=== PATIENT | female | born 1945 | race Caucasian/White ===

== ENCOUNTER 2017-04-24 07:57 | Inpatient (IN) ==
[2017-04-16 18:14] LABS: Basophils # (Auto) 0.1 K/mcL (0.0-0.3); Basophils % (Auto) 0.7 % (0.0-2.0); Eosinophils # (Auto) 0.3 K/mcL (0.0-0.7); Eosinophils % (Auto) 4.2 % (0.0-7.0); Granulocytes % (Auto) 65.6 % (38.0-78.0); Lymphocytes # (Auto) 1.7 K/mcL (1.5-4.8); Mean Cell Volume 86.3 fL (80.0-100.0); Mean Corpuscular HGB Conc 33.3 g/dL (31.0-36.0); Mean Corpuscular Hemoglobin 28.8 pg (26.0-34.0); Monocytes # (Auto) 0.5 K/mcL (0.1-0.9); Monocytes % (Auto) 6.5 % (1.0-12.0); Platelet Count 277 K/mcL (140-440); RBC 4.62 M/mcL (4.00-5.20); Red Cell Distribution Width 14.5 % (11.5-14.5)
[2017-04-16 18:29] LABS: Appearance,Urine CLEAR; Bacteria,Urine 0 /hpf (0); Bilirubin,Urine NEG (NEG); Color,Urine YELLOW; Glucose,Urine (UA) NEGATIVE (NEG); Leukocyte Esterase,Urine 250 /uL (NEG); Mucus,Urine FEW /hpf (0); Nitrate,Urine NEG (NEG); Protein,Urine NEG (NEG); Urine Blood NEG mg/dL (<0.03); Urine RBC 1 /hpf (0-1); Urine Squamous Epithelial Cell < 1 /hpf (0-4); Urine WBC 14 /hpf (0-4); Urobilinogen,Urine NEG (NEG)
[2017-04-16 18:39] LABS: Blood Urea Nitrogen 19 mg/dl (8-23)
[~2017-04-24 07:57] MED LIST: CELECOXIB 200 MG CAPSULE PO SCH; PREGABALIN 75 MG CAPSULE PO SCH; ceFAZolin 1 GM VIAL IV SCH; oxyCODONE 10 MG TAB.ER.12H PO SCH
[2017-04-24 09:22] LABS: Appearance,Urine CLEAR; Bacteria,Urine 0 /hpf (0); Bilirubin,Urine NEG (NEG); Color,Urine YELLOW; Glucose,Urine (UA) NEGATIVE (NEG); Leukocyte Esterase,Urine NEG /uL (NEG); Mucus,Urine FEW /hpf (0); Nitrate,Urine NEG (NEG); Protein,Urine NEG (NEG); Specific Gravity,Urine 1.018 (1.000-1.035); Urine Blood 0.03 mg/dL (<0.03); Urine RBC 7 /hpf (0-1); Urine Squamous Epithelial Cell 0 /hpf (0-4); Urine WBC 1 /hpf (0-4); Urobilinogen,Urine NEG (NEG)
[2017-04-24] MEDS ORDERED: HEPARIN 20,000 UNIT/ML VIAL IR ONE (10:50)
[2017-04-24] MEDS ORDERED: SCOPOLAMINE 1 PATCH PATCH TOPICAL SCH (11:45)
[2017-04-24] MEDS ORDERED: GLYCOPYRROLATE 0.2 MG/ML VIAL IV ONE (11:55)
[2017-04-24] MEDS ORDERED: LIDOCAINE HCL/PF 100 MG/5 ML SYRINGE IV ONE (11:55)
[2017-04-24] MEDS ORDERED: MIDAZOLAM 5 MG/5 ML VIAL IV ONE (11:55)
[2017-04-24] MEDS ORDERED: PROPOFOL 200 MG/20 ML VIAL IV ONE (11:55)
[2017-04-24] MEDS ORDERED: KETAMINE 100 MG/ML ML IV ONE (11:55)
[2017-04-24] MEDS ORDERED: ONDANSETRON 4 MG/2 ML VIAL IV ONE (11:55)
[2017-04-24] MEDS ORDERED: DEXAMETHASONE 10 MG/ML VIAL IV ONE (11:55)
[2017-04-24] MEDS ORDERED: TRANEXAMIC ACID 1,000 MG/10 ML VIAL IV ONE ×2 (11:55→13:27)
[2017-04-24] MEDS ORDERED: diphenhydrAMINE 50 MG/ML VIAL IV PRN (13:09)
[2017-04-24] MEDS ORDERED: MEPERIDINE 25 MG/ML SYRINGE IV PRN (13:09)
[2017-04-24] MEDS ORDERED: NALOXONE HCL 0.4 MG/ML VIAL IV PRN (13:09)
[2017-04-24] MEDS ORDERED: IPRATROPIUM/ALBUTEROL 3 ML AMPUL.NEB NEB PRN (13:09)
[2017-04-24] MEDS ORDERED: FLUMAZENIL 0.1 MG/ML ML IV PRN (13:09)
[2017-04-24] MEDS ORDERED: METHOCARBAMOL 1,000 MG/10 ML VIAL IV PRN (13:09)
[2017-04-24] MEDS ORDERED: ONDANSETRON 4 MG/2 ML VIAL IV PRN ×2 (13:09→13:27)
[2017-04-24] MEDS ORDERED: ePHEDrine 50 MG/ML AMPUL IV PRN (13:09)
[2017-04-24] MEDS ORDERED: LACTATED RINGERS 250 ML IV PRN (13:09)
[2017-04-24] MEDS ORDERED: PROMETHAZINE 25 MG/ML VIAL IM PRN (13:09)
[2017-04-24] MEDS ORDERED: HYDROmorphone 2 MG/ML SYRINGE IV PRN (13:09)
[2017-04-24] MEDS ORDERED: BENZOCAINE/MENTHOL 1 LOZENGE PO PRN ×2 (13:09→13:27)
[2017-04-24] MEDS ORDERED: MEPERIDINE 50 MG/ML SYRINGE IM PRN (13:09)
[2017-04-24] MEDS ORDERED: PROMETHAZINE 25 MG/ML VIAL IV PRN (13:09)
[2017-04-24] MEDS ORDERED: LACTATED RINGERS 1,000 ML IV SCH (13:15)
[2017-04-24] MEDS ORDERED: FLEETS ADULT ENEMA PR PRN (13:27)
[2017-04-24] MEDS ORDERED: POLYETHYLENE GLYCOL 3350 17 GM PACKET PO PRN (13:27)
[2017-04-24] MEDS ORDERED: BISACODYL 10 MG SUPP.RECT PR PRN (13:27)
[2017-04-24] MEDS ORDERED: HYDROcodone/APAP 10/325MG TABLET PO PRN (13:27)
[2017-04-24] MEDS ORDERED: KETOROLAC 30 MG/ML VIAL IV PRN (13:27)
[2017-04-24] MEDS ORDERED: MAGNESIUM HYDROXIDE 30 ML ORAL.SUSP PO PRN (13:27)
--- NOTE | 2017-04-24 13:27 | Brief Operative Note ---
Date of procedure: 04/24/17 Pre-op diagnosis: R hip DJD Post-op diagnosis: same Procedure: Right total hip arthroplasty Grafts/Implants: Yes (Depuy Actis 7 std femur, +1.5 36mm head, 52 cup) Anesthesia: spinal, GLMA Findings: arthritis Complications: none Surgeon: [facility] Coordinator: Manoj Hagan Estimated blood loss (cc): 250 Specimens Removed/Pathology: none sent Condition: stable Disposition: PACU
[2017-04-24] MEDS: fentaNYL 100 MCG/2 ML VIAL IV PRN ×3 (14:10→14:19)
[2017-04-24] MEDS: 0.9 % SODIUM CHLORIDE 1,000 ML IV SCH ×2 (14:17→22:41)
--- NOTE | 2017-04-24 14:32 | Operative Note ---
DATE OF OPERATION: 04/24/2017 PREOPERATIVE DIAGNOSIS: Right hip severe osteoarthritis. POSTOPERATIVE DIAGNOSIS: Right hip severe osteoarthritis. PROCEDURE PERFORMED: Right total hip arthroplasty through direct anterior approach using a DePuy Actis size 7 femoral stem standard offset, a 52 [place] cup with a neutral AltrX liner, and a +1.5, 36 mm Delta ceramic head ball. SURGEON: Yonny Parish MD. EXCHANGE TROUBLE SHOOTER: Eugene Villavicencio PA-C. ANESTHESIA: Spinal plus general. DRAINS: None. SPECIMENS: Femoral head and reamings, which were discarded. BLOOD LOSS: 250 mL. COMPLICATIONS: None. POSTOPERATIVE CONDITION: Stable. INDICATIONS FOR SURGERY: This is a 71-year-old female who has had longstanding, worsening right hip pain. Radiographs showed advanced arthrosis. FINDINGS AT SURGERY: Severe right hip arthritis. Post implantation showed good component position, leg length and offset. PROCEDURE IN DETAIL: The patient had been seen preoperatively. Informed consent had been obtained after discussion of risks and benefits of surgery. Risks including, but not limited to, bleeding, possibly requiring transfusion; infection, possibly requiring implant removal and prolonged IV antibiotics; injury to nerves, blood vessels or other surrounding structures; at particular risk the lateral femoral cutaneous nerve, possibly resulting in numbness over the lateral thigh; anesthetic risks; incomplete or no resolution of symptoms; leg length discrepancy; dislocation; fracture; DVT and pulmonary embolus risks. She understood these risks and wished to proceed. The correct operative site was marked and the patient received spinal anesthesia. She was then taken to the operating room and LMA general given. She was then carefully positioned on the fracture table, and the right hip and groin were carefully prepped and draped in normal sterile fashion. A time-out was performed verifying patient name, operative site, and plan. Standard anterior approach incision was made with a scalpel through skin and subcutaneous tissue, and hemostasis was obtained with Bovie cautery. We continued blunt dissection down onto the tensor fascia and undermined it circumferentially. Irrisept was irrigated and then a ring retractor placed. Tensor fascia was incised in line with the muscle belly, and then careful blunt dissection was taken medial to the muscle belly, and then blunt cobra retractors were placed on the superior and inferior neck. Circumflex vessels were coagulated and cut and vastus fascia released distally. An anterior capsulectomy was performed and capsule releases taken out to the trochanters. Corkscrew was placed in the femoral head and then osteotome used under fluoro to identify our neck cut level. We then made a neck cut with the oscillating tip saw, and the femoral head was levered out. The acetabulum was exposed and labrum and soft tissue was excised circumferentially, as well as off the floor. We then used a reamer to directly medialize under fluoro and increased reamer size until a 51 got rim ream. We trialed a 51 and did get press fit, so we went ahead and opened a 52, 3-hole [place] cup. Irrisept was irrigated into the joint, and after waiting a minute we pulse lavaged copiously with saline. The cup was then impacted about 35 to 40 degrees of inclination and 25 degrees of anteversion. Cup was fully seated and did not require any screw fixation, so a center hole cover was placed and a neutral AltrX liner was carefully impacted. We then went ahead and placed a center hole cover and neutral AltrX liner. The leg was externally rotated and capsule released taken around posteriorly and then leg was extended and adducted. Box osteotome was used to gain canal entry and then an awl to identify canal trajectory. We went ahead and started broaching up to a size 6. We calcar planed a minimal amount and then a standard offset neck with a +1.5 head ball was trialed. AP pelvis was verified for neutral rotation and then AP of the nonoperative and operative hips were overlaid. Leg length and offset appeared appropriate. The stem, however, appeared undersized. We went ahead and dislocated. I was able to impact the size 6 down below our neck cut, so I went up to a size 7. This did seat right at the neck cut so we opened a size 7 stem. Irrisept was irrigated down the femoral canal. After a minute we pulse lavaged copiously with saline and then the stem was impacted. This seated fully on our neck cut, so we opened a 1.5 head ball. The stem was carefully cleaned and dried and then the head ball briskly impacted. The hip was reduced without excessive tension. Final fluoro images were taken which showed good offset and leg length. We then went ahead and did a final deep Irrisept irrigation. After letting this sit for a minute, we pulse lavaged with saline copiously. A #1 Vicryl running stitch was used to close the tensor fascia, one running proximal and one running distal. We removed our ring retractor and irrigated with Irrisept. Again, waiting a minute and then pulse lavaging with saline. A 2-0 Monocryl was used for subcutaneous and ramona for skin. Xeroform and sterile dressing were applied, and the patient was awakened, extubated, and transferred to recovery in stable condition. BJB:rick Job ID: [id number] Doc ID: [id number] Yonny Parish MD
--- NOTE | 2017-04-24 14:47 | XRay Report ---
CLINICAL INFORMATION: Post-op Total Hip COMPARISON: None. FINDINGS: Right hip prostheses is anatomically aligned. No osseous abnormalities. Both SI and left hip joints are normal. Soft tissue swelling over the surgical site seen as expected IMPRESSION: Negative Interpreted and Authenticated by: Edinson Carrera 04/24/17
[2017-04-24] MEDS: 0.9 % SODIUM CHLORIDE 10 ML SYRINGE IV SCH ×2 (19:19→22:13)
[2017-04-24] MEDS: ceFAZolin 1 GM VIAL IV SCH (19:35)
[2017-04-24] MEDS: traMADol 50 MG TABLET PO PRN (19:38)
[2017-04-24] MEDS ORDERED: SENNOSIDES 1 TABLET PO SCH (21:00)
[2017-04-24] MEDS: DOCUSATE SODIUM 100 MG CAPSULE PO SCH (22:12)
[2017-04-24] MEDS: ASPIRIN 325 MG ENTERIC COATED TABLET PO SCH (22:12)
[2017-04-25] MEDS: ceFAZolin 1 GM VIAL IV SCH (03:30)
[2017-04-25] MEDS: 0.9 % SODIUM CHLORIDE 10 ML SYRINGE IV SCH (05:44)
[2017-04-25] MEDS: traMADol 50 MG TABLET PO PRN ×2 (05:57→10:25)
[2017-04-25] MEDS: 0.9 % SODIUM CHLORIDE 1,000 ML IV SCH (07:25)
--- NOTE | 2017-04-25 07:51 | Discharge Summary ---
Ortho Discharge - GRAY - Patient Instructions Diet: Regular Diet Activity: activity as tolerated, weight bearing as tolerated Total Hip Protocol: Follow activity instructions as provided by Physical Therapy. Dressing Care: Brigitteel Ag - leave on for 5 days Patient Education: Total Hip Replacement (DC) - Follow Up Plan Follow Up Appointments: Manoj Hagan PA-C [Physician Payroll Human Resources Assistant] - 05/09/17 10:30 am Disposition: Home, Self-Care Prognosis: Good Rehab Potential: Good - Orders For Discharge Additional Discharge Orders: Physical Therapy at Discharge - GRAY Location: Determined By Patient Toilet Riser Discharge Order Location: Determined By Patient
[2017-04-25] MEDS: DOCUSATE SODIUM 100 MG CAPSULE PO SCH (08:46)
[2017-04-25] MEDS: ASPIRIN 325 MG ENTERIC COATED TABLET PO SCH (08:47)
[2017-04-25] MEDS ORDERED: CALCIUM W/VIT D3 500 MG TABLET PO SCH (09:00)
[2017-04-25] MEDS ORDERED: VITAMIN D3 1,000 UNIT TABLET PO SCH (09:00)
== END 2017-04-25 11:55 | disposition home or self-care (01) | DRG 470 ==
LOC: MEDSUR 07:57
PROVIDERS: ADMIT Orthopaedic Surgery; ATTEND Orthopaedic Surgery

== ENCOUNTER 2018-12-10 09:13 | Inpatient (IN) ==
[2018-12-01 11:42] LABS: Appearance,Urine HAZY; Bacteria,Urine 0 /hpf (0); Bilirubin,Urine NEG (NEG); Color,Urine YELLOW; Glucose,Urine (UA) NEGATIVE (NEG); Leukocyte Esterase,Urine 500 /uL (NEG); Mucus,Urine MANY /hpf (0); Protein,Urine NEG (NEG); Urine Blood NEG mg/dL (<0.03); Urine Hyaline Cast 1 /lpf (0-2); Urine RBC 6 /hpf (0-1); Urine Squamous Epithelial Cell 2 /hpf (0-4); Urine Transitional Epi Cells 2 /hpf (0-2); Urine WBC 39 /hpf (0-4)
[2018-12-01 11:55] LABS: Basophils # (Auto) 0.1 K/mcL (0.0-0.3); Basophils % (Auto) 1.1 % (0.0-2.0); Eosinophils # (Auto) 0.3 K/mcL (0.0-0.7); Granulocytes % (Auto) 61.4 % (38.0-78.0); Lymphocytes # (Auto) 1.6 K/mcL (1.5-4.8); Lymphocytes % (Auto) 24.3 % (15.5-49.0); Mean Cell Volume 80.1 fL (80.0-100.0); Mean Corpuscular HGB Conc 32.2 g/dL (31.0-36.0); Monocytes # (Auto) 0.5 K/mcL (0.1-0.9); Monocytes % (Auto) 8.2 % (1.0-12.0); Platelet Count 314 K/mcL (140-440); RBC 4.79 M/mcL (4.00-5.20); Red Cell Distribution Width 16.7 % (11.5-14.5)
[2018-12-01 11:59] LABS: Estimated Average Glucose(eAG) 114 mg/dL; Hemoglobin A1C 5.6 % HGB (4.0-6.0)
[2018-12-01 12:42] LABS: Blood Urea Nitrogen 17 mg/dl (8-23)
[2018-12-10] MEDS ORDERED: HEPARIN 20,000 UNIT/ML VIAL IR ONE (10:01)
[2018-12-10 11:20] LABS: Appearance,Urine CLEAR; Bilirubin,Urine NEG (NEG); Color,Urine YELLOW; Glucose,Urine (UA) NORM (NEG); Leukocyte Esterase,Urine 2+ (MODERATE) /uL (NEG); PH,Urine 5.5 (5.0-9.0); Protein,Urine NEG (NEG); Urine Blood TRACE ery/mcL (<5); Urobilinogen,Urine NORM (NEG)
[2018-12-10 11:22] LABS: Bacteria,Urine 0 /hpf (0); Mucus,Urine MOD /hpf (0); Urine RBC 3 /hpf (0-1); Urine Squamous Epithelial Cell 2 /hpf (0-4); Urine Transitional Epi Cells 2 /hpf (0-2); Urine WBC 30 /hpf (0-4)
[2018-12-10] MEDS ORDERED: MIDAZOLAM 5 MG/5 ML VIAL IV ONE (11:30)
[2018-12-10] MEDS ORDERED: LIDOCAINE HCL/PF 100 MG/5 ML SYRINGE IV ONE (11:30)
[2018-12-10] MEDS ORDERED: TRANEXAMIC ACID 1,000 MG/10 ML VIAL IV ONE (11:30)
[2018-12-10] MEDS ORDERED: ONDANSETRON 4 MG/2 ML VIAL IV ONE (11:30)
[2018-12-10] MEDS ORDERED: PHENYLEPHRINE 10 MG/ML VIAL IV ONE (11:30)
[2018-12-10] MEDS ORDERED: PROPOFOL 200 MG/20 ML VIAL IV ONE (11:30)
[2018-12-10] MEDS ORDERED: GLYCOPYRROLATE 0.2 MG/ML VIAL IV ONE (11:30)
[2018-12-10] MEDS ORDERED: KETAMINE 100 MG/ML ML IV ONE (11:30)
[2018-12-10] MEDS ORDERED: DEXAMETHASONE 10 MG/ML VIAL IV ONE (11:30)
[2018-12-10] MEDS ORDERED: fentaNYL 100 MCG/2 ML VIAL IV PRN (12:03)
[2018-12-10] MEDS ORDERED: ONDANSETRON 4 MG/2 ML VIAL IV PRN ×2 (12:03→12:53)
[2018-12-10] MEDS ORDERED: IPRATROPIUM/ALBUTEROL 3 ML AMPUL.NEB NEB PRN (12:03)
[2018-12-10] MEDS ORDERED: FLUMAZENIL 0.1 MG/ML ML IV PRN (12:03)
[2018-12-10] MEDS ORDERED: BENZOCAINE/MENTHOL 1 LOZENGE PO PRN ×2 (12:03→12:53)
[2018-12-10] MEDS ORDERED: PROMETHAZINE 25 MG/ML VIAL IV PRN ×2 (12:03→20:25)
[2018-12-10] MEDS ORDERED: NALOXONE HCL 0.4 MG/ML VIAL IV PRN (12:03)
[2018-12-10] MEDS ORDERED: ACETAMINOPHEN 1,000 MG/100 ML BOTTLE IV ONE (12:03)
[2018-12-10] MEDS ORDERED: MEPERIDINE 25 MG/ML SYRINGE IV PRN (12:03)
[2018-12-10] MEDS ORDERED: HYDROmorphone 2 MG/ML VIAL IV PRN ×2 (12:03→12:53)
[2018-12-10] MEDS ORDERED: METHOCARBAMOL 1,000 MG/10 ML VIAL IV PRN (12:03)
[2018-12-10] MEDS ORDERED: LACTATED RINGERS 250 ML IV PRN (12:03)
[2018-12-10] MEDS ORDERED: LACTATED RINGERS 1,000 ML IV SCH (12:15)
[2018-12-10] MEDS ORDERED: FLEETS ADULT ENEMA PR PRN (12:53)
[2018-12-10] MEDS ORDERED: KETOROLAC 15 MG/ML VIAL IV PRN (12:53)
[2018-12-10] MEDS ORDERED: MAGNESIUM HYDROXIDE 30 ML ORAL.SUSP PO PRN (12:53)
[2018-12-10] MEDS ORDERED: BISACODYL 10 MG SUPP.RECT PR PRN (12:53)
[2018-12-10] MEDS ORDERED: POLYETHYLENE GLYCOL 3350 17 GM PACKET PO PRN (12:53)
[2018-12-10] MEDS ORDERED: TRANEXAMIC ACID 1,000 MG/10 ML VIAL IV SCH (12:53)
--- NOTE | 2018-12-10 12:53 | Brief Operative Note ---
Date of procedure: 12/10/18 Pre-op diagnosis: Left hip DJD Post-op diagnosis: same Procedure: Left anterior total hip arthroplasty Grafts/Implants: Yes (Depuy Actis 7 std, +1.5 36 delta head, 52 cup, neutral altrx liner) Anesthesia: spinal, GLMA Findings: large joint effusion Complications: none Surgeon: Yonny Parish Jingle Writer: Manoj Hagan Estimated blood loss (cc): 150 Specimens Removed/Pathology: none sent Condition: stable Disposition: PACU
[2018-12-10] MEDS ORDERED: ACYCLOVIR 400 MG TABLET PO PRN (12:56)
--- NOTE | 2018-12-10 13:48 | Operative Note ---
DATE OF OPERATION: 12/10/2018 PREOPERATIVE DIAGNOSIS: Left hip severe osteoarthritis. POSTOPERATIVE DIAGNOSIS: Left hip severe osteoarthritis. PROCEDURE PERFORMED: Left anterior total hip arthroplasty placing a DePuy Actis size 7 standard offset femoral stem, a +1.5, 36 mm delta ceramic head ball, a 52 three-hole [place] cup with a neutral AltrX liner. SURGEON: Yonny Parish MD FENCE SUPERVISOR: Robert Hagan PA-C. ANESTHESIA: Spinal plus general. DRAINS: None. SPECIMENS: Femoral head which was discarded. BLOOD LOSS: 150 mL COMPLICATIONS: None. POSTOPERATIVE CONDITION: Stable. INDICATIONS FOR SURGERY: This is a 73-year-old female who has had progressive worsening severe left hip pain. Radiographs showed severe [id number] osteoarthritis. FINDINGS AT SURGERY: She did have a large joint effusion as well as the arthrosis. Post implantation showed a similar leg length and offset to the right hip. PROCEDURE IN DETAIL: The patient had been seen preoperatively and informed consent had been obtained after discussion of risks, benefits of surgery. Risks including, but not limited to, bleeding, possibly requiring transfusion; infection, possibly requiring implant removal and prolonged IV antibiotics; injury to nerves, blood vessels other surrounding structures; anesthetic risks; incomplete or no resolution of symptoms; leg length discrepancy; dislocation; fracture; DVT and pulmonary embolus risks; and the possibility of needing revision joint surgery. She understood these risks and wished to proceed. Correct operative site was marked and patient received spinal anesthesia. She was then taken to the operating room and LMA general given. She was carefully positioned on the fracture table and the left hip and groin were carefully prepped and draped in normal sterile fashion and a timeout was performed verifying patient name, operative site, and plan. Ioban was used to cover all skin surfaces and a standard anterior approach incision was made with a scalpel through skin and subcutaneous tissue. Hemostasis was obtained with Bovie cautery and then careful blunt dissection taken down on the tensor fascia and then this was undermined circumferentially. IrriSept was irrigated and then a ring retractor placed. Tensor fascia was incised in line with the muscle fibers and then careful blunt dissection taken medial to the muscle belly. Blunt cobra retractors were placed on the superior and inferior neck and the circumflex vessels were then coagulated and cut and vastus fascia split distally. Anterior capsulectomy was performed and then a capsule released out towards the trochanters. We then placed a corkscrew in the femoral head. Osteotome was used under fluoro to identify the neck cut. We then made our neck cut with oscillating tip saw and then the femoral head was removed. The acetabulum was exposed and labrum was excised circumferentially as well as soft tissue removed from the floor. Bone wax was placed on the cut cancellous bone surface on the femoral neck to decrease bleeding. We then started reaming under fluoro directly medializing to the tear drop and then increasing reamer size and angle until a 51 reamer got rim ream. We opened a 52 three-hole [place] cup. Acetabulum was irrigated with IrriSept. After a minute we pulse lavaged with saline and then using the [id number] impacted the cup at approximately 40 degrees of inclination and 25 degrees of anteversion. We did get good press-fit, so a center hole cover was placed and then a minimal anterior osteophyte was removed with a curved osteotome. We then placed a neutral AltrX liner, which was carefully aligned and impacted. After impacted, we went ahead and checked with a ___ to make sure all tabs were flush with the cup. We then removed traction. The leg was externally rotated. We released the capsule around the medial neck and posteriorly and then the leg was extended and adducted. We released capsule out to the greater trochanter and then after adequate proximal femur exposure, we used a box osteotome and awl to initiate canal preparation. Rongeur and rasp were used to lateralize and then began sequentially broaching with [id number] up to a size 7. This seated right at our neck cut so minimal calcar planing was needed. We then trialed a standard offset neck with a +1.5 head ball. Hip was reduced without excessive tension. AP pelvis was taken to verify neutral rotation and AP of the nonoperative and operative hips were taken and overlaid. Leg lengths were very similar, so we went ahead and redislocated. This was the same size components that she had on the opposite side. We went ahead and opened a size 7 standard stem. The trial was removed and the femoral canal irrigated with IrriSept, after a minute we pulse lavaged with saline. We then impacted the stem until it seated with the collar on the medial calcar. The head ball was opened. The stem was carefully cleaned and dried and the head ball impacted with multiple blows from the [id number]. We then reduced the hip. Final fluoro images were taken and saved. We irrigated more IrriSept, after a minute pulse ox with saline, then used two #1 Vicryl stitches, one running proximal, one running distal to close the tensor fascia. A ring retractor was removed and IrriSept irrigated again, and after a minute pulse lavaged, and then fat was tacked to fascia with Vicryl, 2-0 Monocryl was used for subcutaneous and ramona for skin. Xeroform sterile dressings were applied. The patient was then awakened, extubated, and transferred to recovery in stable condition. BJB:winnie Job ID: [id number] Doc ID: [id number] Yonny Parish MD
--- NOTE | 2018-12-10 13:55 | XRay Report ---
HISTORY: Postop left hip replacement FINDINGS: There is a well-positioned newly inserted left total hip prosthesis. There is no fracture or abnormal soft tissue calcification around the joint. Patient has an indwelling right hip prosthesis which is also well-positioned. IMPRESSION: well-positioned bilateral hip prosthesis and no fracture Interpreted and Authenticated by: Ronnie Simpson 12/10/18
[2018-12-10] MEDS: 0.9 % SODIUM CHLORIDE 1,000 ML IV SCH (14:14)
[2018-12-10] MEDS: 0.9 % SODIUM CHLORIDE 10 ML SYRINGE IV SCH ×2 (14:15→21:29)
[2018-12-10] MEDS: oxyCODONE/APAP 5/325MG TABLET PO PRN (17:22)
[2018-12-10] MEDS: ceFAZolin 1 GM VIAL IV SCH (19:30)
[2018-12-10] MEDS ORDERED: SCOPOLAMINE 1 PATCH PATCH TOPICAL ONE (20:24)
[2018-12-10] MEDS ORDERED: SENNOSIDES 1 TABLET PO SCH (21:00)
[2018-12-10] MEDS: DOCUSATE SODIUM 100 MG CAPSULE PO SCH (21:28)
[2018-12-10] MEDS: ASPIRIN 325 MG ENTERIC COATED TABLET PO SCH (21:29)
[2018-12-11] MEDS: 0.9 % SODIUM CHLORIDE 1,000 ML IV SCH (00:21)
[2018-12-11] MEDS: oxyCODONE/APAP 5/325MG TABLET PO PRN (03:13)
[2018-12-11] MEDS: ceFAZolin 1 GM VIAL IV SCH (03:15)
[2018-12-11] MEDS: 0.9 % SODIUM CHLORIDE 10 ML SYRINGE IV SCH ×2 (05:23→05:59)
--- NOTE | 2018-12-11 08:15 | Discharge Summary ---
Providers - Providers Patient information: Note initiated : 12/11/18 at 8:13 am Service Date, if different from initiated Date: [] Patient: Ann Adams 73 y/o F admitted on 12/10/18 for Left Total Hip Arthroplasty. Chief Complaint: [] Discharge date: 12/11/18 Hospitalization Hospital course: Pt was admitted for a GRAY. Pt underwent the procedure on the day of admission. Py spent one night on the floor prior to discharge for IV pain meds, IV abx, and PT. Pt will take ASA for DVT prophylaxis. Will f/u at [facility] in 2 weeks. Will call [facility] with questions or concerns. Will present to the ED for emergent problems. Discharge diagnosis: L hip OA Exam - Exam Clean and dry: Yes Weight bearing status: as tolerated Ortho Discharge - GRAY - Patient Instructions Diet: Regular Diet Activity: activity as tolerated Total Hip Protocol: Follow activity instructions as provided by Physical Therapy. Dressing Care: May shower in 2 days - Follow Up Plan Disposition: Home, Self-Care Prognosis: Good Rehab Potential: Good Overall status at discharge: patient is progressing back to baseline - Orders For Discharge Prescriptions: Aspirin [Ecotrin] 325 mg PO BID #60 tab.ec Pending Studies Resuscitation Status Full Code Diet Regular Diet Start SatDec 10 1253 Aspirin (Ecotrin) 325 mg PO BID [facility] Last Admin: 12/10/18 21:29 Dose: 325 mg Documented by: CHARLIE Docusate Sodium (Colace) 100 mg PO BID [facility] Last Admin: 12/10/18 21:28 Dose: 100 mg Documented by: CHARLIE Sodium Chloride (Sodium Chloride 0.9%) 1,000 mls @ 100 mls/hr IV .Q10H [facility] Last Admin: 12/11/18 00:21 Dose: 100 mls/hr Documented by: Infusion: 12/11/18 00:14 Dose: 100 mls/hr Documented by: Admin: 12/10/18 14:14 Dose: 100 mls/hr Documented by: NIVIA Ketorolac Tromethamine (Toradol) 15 mg IV Q6HP PRN PRN Reason: Pain Stop: 12/12/18 12:55 Last Admin: 12/11/18 06:57 Dose: 15 mg Documented by: NIVIA Ondansetron HCl (Zofran) 4 mg IV Q4HP PRN PRN Reason: Nausea And Vomiting Last Admin: 12/10/18 18:41 Dose: 4 mg Documented by: CHARLIE Oxycodone/Acetaminophen (Percocet 5-325 Mg) 0 tab PO Q4HP PRN PRN Reason: PAIN LEVEL 3-6 Last Admin: 12/11/18 03:13 Dose: 1 tab Documented by: Admin: 12/10/18 17:22 Dose: 1 tab Documented by: NIVIA Senna (Senokot) 2 tab PO HS [facility] Last Admin: 12/10/18 21:28 Dose: 2 tab Documented by: CHARLIE Sodium Chloride (Saline Flush) 10 ml IV Q8 [facility] Last Admin: 12/11/18 05:59 Dose: Not Given Documented by: Admin: 12/10/18 21:29 Dose: Not Given Documented by: Admin: 12/10/18 14:15 Dose: Not Given Documented by: NIVIA Shift Summary 12/11/18 04:32 Shift Summary by Sofy Cole Patient slept off and on this shift to go to the bathroom. Up with FWW, GB and 1 assist. Patient vomitted four times last night,estimated 1000 mls of previously ingested food. Also complained of dizziness when standing up. Given Zofran IV x1 with no effect. New order of Scopolamine patch and Phenergan PRN received from Dr. Parish. Patient given scopolamine patch behing right ear with good effect. Void four times this shift. Mostly missed the hat in the toilet. Ice pack and foot pumps applied. Medicated with Percocet 5 1 tab x1 with moderate effect. IVF NS@100 infusing well on left hand. Left hip incision- dressing CDI No more nausea or dizziness this morning.VSS. Initialized on 12/11/18 04:32 - END OF NOTE
[2018-12-11] MEDS ORDERED: VITAMIN D3 1,000 UNIT TABLET PO SCH (09:00)
[2018-12-11] MEDS: DOCUSATE SODIUM 100 MG CAPSULE PO SCH (09:05)
[2018-12-11] MEDS: ASPIRIN 325 MG ENTERIC COATED TABLET PO SCH (09:05)
--- NOTE | 2018-12-28 06:31 | XRay Report ---
CLINICAL INFORMATION: Left hip arthroplasty TECHNIQUE: 0.2 minutes fluoroscopy utilized by Dr. Parish. Intraoperative spot films were obtained. Left hip arthroplasty performed. IMPRESSION: Intraoperative fluoroscopy and spot films, left hip arthroplasty Interpreted and Authenticated by: Edinson uFnez 12/28/18
== END 2018-12-11 10:15 | disposition home or self-care (01) | DRG 470 ==
LOC: MEDSUR 09:13
PROVIDERS: ADMIT Orthopaedic Surgery; ATTEND Orthopaedic Surgery